=== PATIENT | male | born 1985 | race Caucasian/White ===

== ENCOUNTER 2020-03-29 07:12 | Outpatient (REF) | payer BC, SELFPAY ==
[2020-03-29 08:27] LABS: MANUAL DIFF FLAG NO
[2020-03-29 08:32] LABS: Basophils Percent Auto 0.6 % (0-2); Eosinophils Absolute Auto 0.1 X10*3/uL (0.0-0.4); Eosinophils Percent Auto 1.5 % (0-4); Hematocrit 42.2 % (42-52); Hemoglobin 13.8 g/dl (14.0-18.0); Lymphocytes Absolute Auto 1.4 X10*3/uL (1.2-4.9); Lymphocytes Percent Auto 29.7 % (20-40); Mean Corpuscular HGB Conc 32.7 g/dl (31.0-36.0); Mean Corpuscular Hemoglobin 29.1 pg (27.0-33.0); Mean Platelet Volume 10.1 fL (9.4-12.4); Monocytes Absolute Auto 0.3 X10*3/uL (0.1-1.2); Monocytes Percent Auto 5.8 % (2-11); Neutrophils Absolute Auto 2.9 X10*3/uL (2.0-8.3); Neutrophils Percent Auto 62.4 % (45-73); Platelet Count 209 X10*3/uL (160-400); Red Blood Count 4.74 X10*6/uL (4.60-5.80); Red Cell Distribution Width 12.6 % (11.0-16.0); White Blood Count 4.6 X10*3/uL (4.8-10.8)
[2020-03-29 09:01] LABS: Alanine Aminotransferase 13 U/L (0-40); Albumin Level 4.8 g/dL (3.5-5.0); Alkaline Phosphatase 39 U/L (39-117); Anion Gap 12 (12-20); Aspartate Amino Transferase 16 U/L (5-37); Bilirubin Total 0.5 mg/dL (0.0-1.0); Blood Urea Nitrogen 25 mg/dL (9-16); Calcium 9.4 mg/dL (8.4-10.2); Carbon Dioxide 30 mmol/L (22-29); Chloride 103 mmol/L (96-108); Cholesterol 167 mg/dL; Estimated Glomerular Filt Rate > 60; Glucose Random 96 mg/dL (60-115); HDL Cholesterol 49 mg/dL; LDL Cholesterol Calculated 105 mg/dl; Potassium 4.7 mmol/l (3.3-5.1); Sodium 140 mmol/L (135-145); Triglycerides 65 mg/dL
[2020-03-29 09:15] LABS: Free T4 (Free Thyroxine) 0.92 ng/dL (0.71-1.85); Thyroid Stimulating Hormone 0.87 uIU/mL (0.32-4.0)
[2020-03-31 05:14] LABS: Folate 8.7 ng/mL (> or = 4.0); Vitamin B12 397 pg/mL (200-900)
== END 2020-03-29 07:13 | disposition home or self-care (01) ==
LOC: HO.LAB 07:12
PROVIDERS: PCP Internal Medicine; Visit Provider Internal Medicine
DX: K21.9 Gastro-esophageal reflux disease without esophagitis (principal); E78.00 Pure hypercholesterolemia, unspecified
CPT/HCPCS: 36415; 80053; 80061; 82607; 82746; 84439; 84443; 85025

== ENCOUNTER 2020-05-27 10:11 | Outpatient (REF) | payer BC, SELFPAY ==
[2020-05-27 10:59] LABS: MANUAL DIFF FLAG NO
[2020-05-27 11:05] LABS: Basophils Percent Auto 0.5 % (0-2); Eosinophils Absolute Auto 0.1 X10*3/uL (0.0-0.4); Eosinophils Percent Auto 1.5 % (0-4); Hematocrit 41.5 % (42-52); Hemoglobin 13.5 g/dl (14.0-18.0); Imm Gran Abs Auto 0.01 X10*3/uL (0.00-0.03); Imm Gran Pct Auto 0.2 % (0.0-0.4); Lymphocytes Absolute Auto 1.3 X10*3/uL (1.2-4.9); Lymphocytes Percent Auto 24.1 % (20-40); Mean Corpuscular HGB Conc 32.5 g/dl (31.0-36.0); Mean Corpuscular Volume 89.1 fL (80-98); Monocytes Absolute Auto 0.4 X10*3/uL (0.1-1.2); Monocytes Percent Auto 6.9 % (2-11); Neutrophils Absolute Auto 3.7 X10*3/uL (2.0-8.3); Neutrophils Percent Auto 66.8 % (45-73); Platelet Count 193 X10*3/uL (160-400); Red Blood Count 4.66 X10*6/uL (4.60-5.80); Red Cell Distribution Width 13.2 % (11.0-16.0); Retic HGB Equivalent 34.4 pg (30.0-35.0); Reticulocyte Percent 0.6 % (0.5-1.8); Reticulocytes Absolute 0.027 X10*6/uL (0.026-0.095); White Blood Count 5.5 X10*3/uL (4.8-10.8)
[2020-05-27 12:07] LABS: Folate 9.2 ng/mL (> or = 4.0); Vitamin B12 393 pg/mL (200-900)
[2020-05-27 12:29] LABS: Iron 79 mcg/dL (45-160); Percent Iron Saturation 24 % (15-50); Total Iron Binding Capacity 323 mcg/dL (228-428); Unsaturated Iron Binding 244 ug/dL
[2020-05-27 12:54] LABS: Ferritin 58 ng/mL (20-250)
== END 2020-05-27 10:12 | disposition home or self-care (01) ==
LOC: HO.HMGCLDS 10:11
PROVIDERS: PCP Internal Medicine; Visit Provider Internal Medicine
DX: D64.9 Anemia, unspecified (principal)
CPT/HCPCS: 36415; 82607; 82728; 82746; 83540; 85025; 85045

== ENCOUNTER → 2023-11-10 14:06 | Outpatient (RCR) | payer BC, SELFPAY ==
--- NOTE | 2020-07-21 09:17 | PM.HEMONCCN ---
Subjective - Subjective Chief complaint: Low blood counts Patient: new to practice Consult date: 07/21/20 Requesting Physician: Dr. Lopes Primary Care Provider: Umari Lopes MD HPI - Consult Narrative Reason for consult: Normocytic anemia Narrative: Abundio Mitchell is a 35 year old male referred for evaluation of mild normocytic anemia. His hemoglobin was around 13 gram/dL on a couple of occasions in 2020. His white count was slightly low on 1 occasion. He has no history of fever, chills, night sweats or unexplained weight loss. He has past history of alcoholism but he has stopped drinking about 3 years ago. He has a history of chronic GERD but does not take any medications for it. He exercises, walks or runs 3 miles every day. He denies any shortness of breath or chest pain. No change in bowel habits. He smokes marijuana daily. His daughter who is 3 years old now was treated for acute myelogenous leukemia. She is in remission. Review of Systems - Constitutional Reports as per HPI, Denies fatigue, Denies fever(s), Denies malaise, Denies night sweats, Denies poor appetite - Cardiovascular Reports no additional cardiovascular complaints - Respiratory Reports no additional respiratory complaints - Gastrointestinal Reports no additional gastrointestinal complaints Oncology Screenings - ECOG Performance Status ECOG Performance Status: 0 PMFSH Medical History: Medical History (Last Updated 07/01/20 @ 15:53 by Umair Lopes MD) ADHD Anxiety and depression Carpal tunnel syndrome GERD (gastroesophageal reflux disease) Insomnia Stills heart murmur Vitamin D deficiency Family History: Family History (Last Updated 07/01/20 @ 15:55 by Umair Lopes MD) Maternal Grandfather Myocardial infarction Maternal Aunt Ovarian cancer Maternal Grandmother Breast cancer Paternal Grandfather Sarcoma Daughter Leukemia Surgical History: Surgical History (Last Updated 07/21/20 @ 09:23 by Sandra Melgoza) H/O vasectomy Hx of appendectomy Hx of carpal tunnel repair Social History: Social History (Last Updated 07/21/20 @ 09:23 by Sandra Melgoza) Alcohol History: Alcohol intake: former Alcohol History Details: Alcohol intake frequency: does not drink Tobacco History: Smoking Status: Never smoker Substance Use History: Use of substances other than those prescribed or required for medical reasons: No Substance Use Type: Marijuana Smoking status: Never smoker Home Medications and Allergies Allergies Allergy/AdvReac Type Severity Reaction Status Date / Time trazodone AdvReac Mild Sedating Verified 03/26/20 07:46 Physical Exam Vital signs: Vital Signs Temp Pulse Resp BP Pulse Ox 07/21/20 09:19 98.2 F 66 12 142/66 H 100 Intake and Output 07/20/20 07/21/20 07/21/20 22:59 06:59 14:59 Other: Weight 70.4 kg [place] Weight in Grams [id number] Patient Weight 07/22/20 06:59 Weight 70.4 kg - Constitutional Present: no acute distress, mild distress - Routine HEENT Exam Head: Present: normal inspection Eye: Present: EOMI, PERRL - Routine Neck Exam Present: supple. Absent: lymphadenopathy - Routine Respiratory Exam Present: CTAB - Routine Cardiovascular Exam Cardiovascular: Present: S1, S2 - Routine Abdominal Exam Present: soft. Absent: organomegaly - Routine Extremities Exam Absent: pedal edema - Routine Skin Exam Present: intact. Absent: erythema Hem/Onc Consult Result - Labs CBC & Chem 7: 07/21/20 09:56 Assessment and Plan (1) Anemia Status: Chronic Qualifiers: Anemia type: unspecified type Qualified Code(s): D64.9 - Anemia, unspecified This is a 35-year-old male in excellent health who was noted to have mild normocytic anemia on routine blood work. He is concerned about this because of his daughter having been treated for acute leukemia. He does not have any constitutional symptoms. Blood work shows no evidence of hemolysis, no kidney or liver problems. No hematinic deficiencies. The only other concern is that he thinks he is is exposed to certain toxic aerosols at work, he has inquired at his job and he was told that they are following standard guidelines. Blood work today shows borderline normocytic anemia. This has been stable since March. He has persistent lymphopenia although his total WBC count is normal. Further evaluation with a bone marrow aspiration/biopsy can be performed if no further cause can be ascertained. I thank you for this consultation.
[2020-07-21 09:19] VITALS: BP 142/66; PULSE 66; RESP 12; TEMP 36.8; O2SAT 100; BMI 19.3
[2020-07-21 10:14] LABS: MANUAL DIFF FLAG NO
[2020-07-21 10:18] LABS: Basophils Percent Auto 0.5 % (0-2); Eosinophils Percent Auto 0.5 % (0-4); Hematocrit 39.8 % (42-52); Hemoglobin 13.2 g/dl (14.0-18.0); Imm Gran Abs Auto 0.02 X10*3/uL (0.00-0.03); Imm Gran Pct Auto 0.3 % (0.0-0.4); Immature Retic Fraction 4.1 % (2.3-13.4); Lymphocytes Percent Auto 14.7 % (20-40); Mean Corpuscular HGB Conc 33.2 g/dl (31.0-36.0); Mean Corpuscular Hemoglobin 29.4 pg (27.0-33.0); Mean Corpuscular Volume 88.6 fL (80-98); Monocytes Absolute Auto 0.5 X10*3/uL (0.1-1.2); Monocytes Percent Auto 7.4 % (2-11); Neutrophils Absolute Auto 5.1 X10*3/uL (2.0-8.3); Neutrophils Percent Auto 76.6 % (45-73); Platelet Count 205 X10*3/uL (160-400); Red Blood Count 4.49 X10*6/uL (4.60-5.80); Red Cell Distribution Width 13.2 % (11.0-16.0); Retic HGB Equivalent 34.1 pg (30.0-35.0); Reticulocyte Percent 0.9 % (0.5-1.8); White Blood Count 6.6 X10*3/uL (4.8-10.8)
[2020-07-21 10:38] LABS: Lactate Dehydrogenase 188 U/L (118-273)
--- NOTE | 2020-07-21 11:46 | MHC.HEMONCMA ---
Patient came in for a consult for anemia and wbc counts today. States he is feeling well, but is worried about the bloodwork because his daughter had leukemia when she was 1. Patient states that his daughter is well now and is 3 years old. Clinical summary was reviewed and updated. Patient had labs and will have a telehealth in 3 weeks for a follow up
[2020-07-23 13:46] LABS: Anti Nuclear Antibody Screen NEGATIVE (NEGATIVE)
[2020-07-23 21:01] LABS: Haptoglobin 78 mg/dL (43-212)
--- NOTE | 2020-08-11 08:59 | HO.HEMONCTE1 ---
Hem/Onc Clinic Telehealth - Telehealth Location of Provider rendering services: Office Location of Patient: home Patient Identification confirmed using: Name, : Yes Telehealth Method: telephone Patient verbally consented to treatment: yes Patient verbally consented to billing insurance company: Yes Patient informed of any privacy concerns related to visit: Yes Medical Summary - Medical Summary Date of Service: 08/11/20 Chief complaint: follow-up Medical Summary: Diagnosis: Normocytic anemia, 2020 Hematological workup negative. Interval History Interval history: This is a scheduled tele visit for patient, mainly to discuss results of blood work. He has no new complaints today. He continues to exercise, run on a daily basis. No excessive fatigue, exertional chest pain or shortness of breath. No dizziness, loss of appetite or weight loss. Review of Systems - Constitutional Reports as per HPI, Reports no additional constitutional complaints Home Medications and Allergies Allergies Allergy/AdvReac Type Severity Reaction Status Date / Time trazodone AdvReac Mild Sedating Verified 03/26/20 07:46 Exam Vital signs: Vital Signs Temp 98.2 F 07/21/20 09:19 Pulse 66 07/21/20 09:19 Resp 12 07/21/20 09:19 BP 142/66 H 07/21/20 09:19 Pulse Ox 100 07/21/20 09:19 Weight 70.4 kg Body Mass Index 19.3 Narrative: Patient not examined today. - Constitutional Present: no acute distress, mild distress - Routine HEENT Exam Head: Present: normal inspection - Routine Respiratory Exam Present: CTAB - Routine Cardiovascular Exam Cardiovascular: Present: S1, S2 - Routine Abdominal Exam Present: soft. Absent: organomegaly - Routine Extremities Exam Absent: pedal edema - Routine Skin Exam Present: intact. Absent: erythema Data - Labs CBC & Chem 7: 07/21/20 09:56 Labs: 07/21/20 09:56 PRISCILLA Reflex Titer and Pattern Routine Complete Blood Count Auto Diff Routine Haptoglobin Routine Lactate Dehydrogenase Routine Reticulocyte Count Routine Laboratory Last Values WBC 6.6 X10*3/uL (4.8-10.8) 07/21/20 09:56 RBC 4.49 X10*6/uL (4.60-5.80) L 07/21/20 09:56 Hgb 13.2 g/dl (14.0-18.0) L 07/21/20 09:56 Hct 39.8 % (42-52) L 07/21/20 09:56 MCV 88.6 fL (80-98) 07/21/20 09:56 MCH 29.4 pg (27.0-33.0) 07/21/20 09:56 MCHC 33.2 g/dl (31.0-36.0) 07/21/20 09:56 RDW 13.2 % (11.0-16.0) 07/21/20 09:56 Plt Count 205 X10*3/uL (160-400) 07/21/20 09:56 MPV 10.0 fL (9.4-12.4) 07/21/20 09:56 Immature Gran % (Auto) 0.3 % (0.0-0.4) 07/21/20 09:56 Neut % (Auto) 76.6 % (45-73) H 07/21/20 09:56 Lymph % (Auto) 14.7 % (20-40) L 07/21/20 09:56 [place] % (Auto) 7.4 % (2-11) 07/21/20 09:56 Eos % (Auto) 0.5 % (0-4) 07/21/20 09:56 Baso % (Auto) 0.5 % (0-2) 07/21/20 09:56 Lymph # (Auto) 1.0 X10*3/uL (1.2-4.9) L 07/21/20 09:56 [place] # (Auto) 0.5 X10*3/uL (0.1-1.2) 07/21/20 09:56 Eos # (Auto) 0.0 X10*3/uL (0.0-0.4) 07/21/20 09:56 Baso # (Auto) 0.0 X10*3/uL (0.0-0.2) 07/21/20 09:56 Abs Immat Gran (auto) 0.02 X10*3/uL (0.00-0.03) 07/21/20 09:56 Absolute Neuts (auto) 5.1 X10*3/uL (2.0-8.3) 07/21/20 09:56 Absolute Nucleated RBC 0.000 X10*3/uL (0.0-0.012) 07/21/20 09:56 Nucleated RBC % (auto) 0.0 /100WBC (0.0-0.2) 07/21/20 09:56 Absolute Retic 0.040 X10*6/uL (0.026-0.095) 07/21/20 09:56 Percent Retic 0.9 % (0.5-1.8) 07/21/20 09:56 Immature Retic Fraction 4.1 % (2.3-13.4) 07/21/20 09:56 Retic Hgb Equivalent 34.1 pg (30.0-35.0) 07/21/20 09:56 Haptoglobin 78 mg/dL (43-212) 07/21/20 09:56 Lactate Dehydrogenase 188 U/L (118-273) 07/21/20 09:56 PRISCILLA Screen NEGATIVE (NEGATIVE) 07/21/20 09:56 PRISCILLA Titer TNP 07/21/20 09:56 PRISCILLA Titer 2 TNP 07/21/20 09:56 PRISCILLA Titer 3 TNP 07/21/20 09:56 PRISCILLA Pattern TNP 07/21/20 09:56 PRISCILLA Pattern 2 TNP 07/21/20 09:56 PRISCILLA Pattern 3 TNP 07/21/20 09:56 Progress Note: A/P (1) Anemia Status: Chronic Assessment and plan: This is a 35-year-old male in excellent health who was noted to have mild normocytic anemia on routine blood work. He is concerned about this because of his daughter having been treated for acute leukemia. He does not have any constitutional symptoms. Blood work shows no evidence of hemolysis, no kidney or liver problems. No hematinic deficiencies. I discuss results of blood work. No cause for anemia can be found. CBC will be repeated in 3 months. If declining further I discussed performing bone marrow aspiration /biopsy. He is agreeable with above plan. I spent 10 minutes with the patient on the phone. Follow-up in 2 months. - Time Spent With Patient Total time spent is greater than 50% in coordination of care (as documented) at patient's floor/unit and/or counseling patient: less than 15 minutes
--- NOTE | 2020-08-11 13:38 | MHC.HEMONCMA ---
Patient had a telehealth appt with Dr Henson today, he states that he is doing very well. Clinical summary was reviewed and updated. Patient did not have labs but will come in for a follow up in 2 months.
== END | disposition home or self-care (01) ==
LOC: HO.ONC 07-21 09:04
PROVIDERS: PCP Internal Medicine; Visit Provider Internal Medicine
DX: D64.9 Anemia, unspecified (principal)
CPT/HCPCS: 36415; 83010; 83615; 85025; 85045; 86038; 86039

== ENCOUNTER 2023-12-29 14:56 | Outpatient (AMB) | payer BC, SELFPAY ==
--- NOTE | 2023-12-29 14:57 | MHC.PC.OV ---
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: No Allergies No Known Allergies Allergy (Verified 12/29/23 14:58) Medication List - Last Reconciled 12/29/23 by Umair Lopes MD dextroamphetamine-amphetamine 10 mg 1 tab PO TID fexofenadine (Fe Allergy) 180 mg PO DAILY trazodone 50 mg PO BEDTIME PRN Tobacco use date assessed: 12/29/23 Dental Screening Dental Screen Date: 12/29/23 Did you have a dental visit in the last 12 months?: Yes Did you have a dental problem in the last 6 months where you did not have access to dental care?: No Was dental information given to patient?: Patient has dentist HPI PE HPI Details 38-year-old male(noted 16 lb weight loss.) With GERDAnd anemia coming in for physical exam last seen in 07/24/2022. PFSH Medical History ADHD Anxiety and depression Carpal tunnel syndrome GERD (gastroesophageal reflux disease) Insomnia Stills heart murmur Vitamin D deficiency Surgical History H/O vasectomy Hx of appendectomy Hx of carpal tunnel repair Family History (Updated 12/29/23 @ 15:29 by Umair Lopes MD) Maternal Grandfather Myocardial infarction Maternal Aunt Ovarian cancer Maternal Grandmother Breast cancer Paternal Grandfather Sarcoma Daughter Leukemia Maternal Uncle Testicular cancer Mother Skin cancer Social History (Updated 12/29/23 @ 15:30 by Umair Lopes MD) Housing: House Alcohol intake: former Comment: 1 year Patient Tobacco Use Status: Never used Tobacco e-Cigarette/Vaping Use: Never Used Substance Use Type: Marijuana Current occupational status: employed Cognitive needs: No Hearing needs: No Vision needs: No Questionnaire PHQ-9 Over the last 2 weeks, how often have you been bothered by any of the following problems? 1. Little interest or pleasure in doing things: not at all 2. Feeling down, depressed, or hopeless: not at all 3. Trouble falling or staying asleep, or sleeping too much: not at all 4. Feeling tired or having little energy: not at all 5. Poor appetite or overeating: not at all 6. Feeling bad about yourself - or that you are a failure or have let yourself or your family down: not at all 7. Trouble concentrating on things, such as reading the newspaper or watching television: not at all 8. Moving or speaking so slowly that other people could have noticed. Or the opposite - being so fidgety or restless that you have been moving around a lot more than usual: not at all 9. Thoughts that you would be better off or of hurting yourself in some way: not at all Total score: 0 Depression Screening Interpretation: Negative Depression Screening Done: Yes 85621 - PHQ-9 Billing: Yes Source: Developed by Drs. Fernando Mei, Kary Ochoa, Otoniel Coronado and colleagues, with an educational ceasar from [employer]. Thrive Questionnaire Date Thrive assessed: 12/29/23 I am a: Patient What is your living situation today?: I do not have a steady places to live I am temporarily staying with others Within the past 12 months, did the food you bought not last and you didn't have the money to get more?: Often true Within the past 12 months, did you worry whether your food would run out before you got money to buy more?: Often true Do you have trouble paying for medicines?: Yes Do you have trouble getting transportation to medical appointments?: Yes Do you have trouble paying your heating and electricity bill?: Yes Do you have trouble taking care of your child, family member or friend?: Yes Do you have trouble with day-to-day activities such as bathing, preparing meals, shopping, managing finances, etc.?: Yes Are you currently unemployed and looking for a job?: Yes Are you interested in more education?: Yes Please select the resources that you would like help with: Food and None Currently or been in a relationship where the following occur: No concerns reported THRIVE Score: 5 AUDIT C Alcohol Use Questionnaire (AUDIT-C) 1. How often do you have a drink containing alcohol?: Never 3. How often do you have six or more drinks on one occasion?: Never Total Score: 0 MONTRELL-7 AMB Questionnaire MONTRELL-7 Date MONTRELL - 7 assessed: 12/29/23 Feeling nervous, anxious, or on edge: 0 = Not at all Not being able to stop or control worryin = Several days Worrying too much about different things: 0 = Not at all Trouble relaxin = Several days Being so restless that it is hard to sit still: 0 = Not at all Becoming easily annoyed or irritable: 0 = Not at all Feeling afraid as if something awful might happen: 1 = Several days Total MONTRELL-7 score (0-4 normal; 5-9 mild; 10-14 moderate; 15-21 severe): 3 Source: Developed by Drs. Fernando Mei, Kary Ochoa, Otoniel Coronado and colleagues, with an educational ceasra from [employer]. MONTRELL-7 Assessment Billing MONTRELL-7 Assessment Tool: MONTRELL-7 Assessment 00852 Review of Systems Const Denies poor appetite and Denies weakness Eyes Denies no additional complaints ENT Reports Normal hearing present, Denies dizziness, Denies nasal congestion, Denies tinnitus and Denies sore throat Card Denies chest pain, Denies syncope, Denies rapid heart rate and Denies dyspnea Resp Denies cough and Denies dyspnea GI Denies change in stool character, Reports constipation, Denies diarrhea, Denies nausea and Denies vomiting Denies dysuria and Denies urinary frequency Neuro Reports Normal hearing present, Denies confusion, Denies dizziness, Denies syncope and Denies weakness Psych Denies confusion Physical exam (Primary Care) Vital Signs: Last Vital Signs Pulse 91 12/29/23 14:58 BP 110/80 12/29/23 14:58 Pulse Ox 98 12/29/23 14:58 Oxygen Delivery Method Room Air 12/29/23 14:58 BMI result Body Mass Index 18.0 Tobacco/Smoking Status: Tobacco use Status Tobacco use date assessed 12/29/23 12/29/23 14:59 Patient Tobacco Use Status Never used Tobacco 12/29/23 14:59 e-Cigarette/Vaping Use Never Used 12/29/23 14:59 PHQ-9: PHQ-9 Score PHQ-9: Total score 0 12/29/23 14:59 Depression Screening Interpretation: Negative Thrive Assessment: Date of Thrive Assessment Date Thrive assessed 12/29/23 12/29/23 14:59 Currently or been in a relationship where the following occur: No concerns reported Const General: No confusion Orientation/consciousness: No confusion HENMT Head: Yes normocephalic Ears: external ears normal and TM's normal bilaterally Face and sinus: Yes normal facial exam Mouth: moist mucous membranes Throat: Yes tonsils normal Eyes Conjunctivae: conjunctivae normal Pupils: Equal, round and reactive pupils present and Pupil accommodation reflex normal Direct Ophthalmoscopy: normal light reflex Neck Neck: No lymphadenopathy Thyroid: Thyroid normal Chest Chest palpation & inspection: normal inspection of the chest Resp Effort & Inspection: normal respiratory effort and no audible wheezes Auscultation: clear to auscultation bilaterally, no crackles, no wheezes and lung sounds not diminished Cardio Rate: regular rate Rhythm: regular rhythm Peripheral pulses: radial pulses present and dorsalis pedis present GI Palpation (GI): no masses Auscultation: normal bowel sounds and normoactive bowel sounds Rectal Exam - Male: Yes deferred Skin General skin exam: no rashes or lesions noted Rashes: no rashes Neuro General: No confusion Cranial nerves: Yes Equal, round and reactive pupils present and Yes Normal hearing present Cognition (Neuro): normal cognition Gait exam (Neuro): Normal gait present Motor exam (neuro): 5/5 motor strength present throughout Deep tendon reflexes (DTR's): Right brachioradialis reflex intensity grade: 2+, Left brachioradialis reflex intensity grade: 2+, Right patellar reflex intensity grade: 2+ and Left patellar reflex intensity grade: 2+ Extrem General: No edema Coding Level of Care Code Est Pt Prev Care 18-39y(41210) Diagnoses Annual physical exam Z00.00 Weight loss R63.4 Gastroesophageal reflux disease without esophagitis K21.9 Esophagitis presence: without esophagitis Anemia, unspecified type D64.9 Anemia type: unspecified type Generalized anxiety disorder F41.1 Chronic pain of left knee M25.562; G89.29 Chronicity: chronic Additional Codes MONTRELL-7 Assessment Billing - MONTRELL-7 Assessment Tool: MONTRELL-7 Assessment [id number] ([id number]) Assessment & Plan Assessment & Plan (1) Annual physical exam: Code(s): Z00.00 - Encounter for general adult medical examination without abnormal findings Category: Medical Plan: Patient is advised to eat healthy, keep well hydrated, keep active and have adequate sleep. (2) Weight loss: Code(s): R63.4 - Abnormal weight loss Category: Medical Plan: Patient is advised to get blood work done. (3) GERD (gastroesophageal reflux disease): Code(s): K21.9 - Gastro-esophageal reflux disease without esophagitis Category: Medical Qualifiers: Esophagitis presence: without esophagitis Qualified Code(s): K21.9 - Gastro-esophageal reflux disease without esophagitis Plan: Avoid the foods that causes that usually spicy foods, tomato products, juices, coffee, soda and foods that your sensitive to. After eating do not lie down, allow 3-4 hours before in lie down. And keep the head of bed above 30 degrees to avoid the acid from going up. (4) Anemia: Comment: Patient has seen hematology oncology 2020 and will continue follow-up Code(s): D64.9 - Anemia, unspecified Category: Medical Qualifiers: Anemia type: unspecified type Qualified Code(s): D64.9 - Anemia, unspecified Plan: Will have to request for new blood work (5) Generalized anxiety disorder: Code(s): F41.1 - Generalized anxiety disorder Category: Medical Plan: Continue with present medication (6) Knee pain, left: Code(s): M25.562 - Pain in left knee Category: Medical Qualifiers: Chronicity: chronic Qualified Code(s): M25.562 - Pain in left knee; G89.29 - Other chronic pain Plan: will do xray first Orders: Orders Complete Blood Count Auto Diff Today R63.4 - Abnormal weight loss Comprehensive Met. Panel Today R63.4 - Abnormal weight loss Free T4 (Free Thyroxine) Today R63.4 - Abnormal weight loss Thyroid Stimulating Hormone Today R63.4 - Abnormal weight loss Lipid Panel Today E78.00 - Pure hypercholesterolemia, unspecified, R63.4 - Abnormal weight loss IRON PROFILE Today R63.4 - Abnormal weight loss UA CC w/rflx Micro + Cult Today R30.0 - Dysuria, R63.4 - Abnormal weight loss XR knee LT 2V Today G89.29 - Other chronic pain, M25.562 - Pain in left knee Testosterone, Total Today K21.9 - Gastro-esophageal reflux disease without esophagitis Vitamin B12 and Folate Today R63.4 - Abnormal weight loss Ferritin Today R63.4 - Abnormal weight loss Reticulocyte Count Today R63.4 - Abnormal weight loss
[2023-12-29 14:58] VITALS: BP 110/80; PULSE 91; O2SAT 98; BMI 18.0
== END 2023-12-29 15:47 | disposition home or self-care (01) ==
PROVIDERS: PCP Internal Medicine; Visit Provider Internal Medicine
DX: Z00.00 Encounter for general adult medical examination without abnormal findings (principal); R63.4 Abnormal weight loss; K21.9 Gastro-esophageal reflux disease without esophagitis; D64.9 Anemia, unspecified; F41.1 Generalized anxiety disorder; M25.562 Pain in left knee; G89.29 Other chronic pain

== ENCOUNTER → 2023-12-29 14:56 | Outpatient (BNVA) | payer BC, SELFPAY | PROVIDERS: PCP Internal Medicine; Visit Provider Internal Medicine | DX: Z00.00 Encounter for general adult medical examination without abnormal findings (principal); R63.4 Abnormal weight loss; K21.9 Gastro-esophageal reflux disease without esophagitis; D64.9 Anemia, unspecified; F41.1 Generalized anxiety disorder; G89.29 Other chronic pain; M25.562 Pain in left knee | CPT/HCPCS: 96127 ==

== ENCOUNTER 2024-04-16 08:43 | Outpatient (REF) | payer BC, SELFPAY ==
[2024-04-16 08:58] LABS: MANUAL DIFF FLAG NO
--- OUTSIDE RECORDS SUMMARY | 2024-04-16 09:06 | XMS_ITS | Encounter Summary ---
Author Organization Formerly [facility] Address [address] [place] [address] Care Team Providers Care Mortuary Operations Manager Name Role Phone Pcp, No Primary Care Provider Unavailabl e Encounter Details Date Type Department Care Team (Late st Contact Info) Description 01/15/2018 11:41 AM EST Hospital Encounter Formerly named [facility] [facility] [place] [address] [place] [address] Manyn Ibarra PA [employer] [address] [place] [address] Social History Tobacco Use Types Packs/Day Years Used Date Smoking Tobacco: Never Smokeless Tobacco: Never Alcohol Use Standard Drinks/Week Comments Not Currently 0 (1 standard drink = 0.6 oz pur e alcohol) Sex and Gender Information Value Date Recorded Sex Assigned at Not on file Gender Identity Not on file Sexual Orientation [...] or dislocation. The soft tissues are unremarkable. ??Small benign bone island identified in the distal [...] fracture or dislocation of the right hand. [facility] ORDER[facility] documented in this encounter Visit Diagnoses Not on filedocumented in this encounter Care Teams Mortuary Operations Manager Relationship Specialty Start Date End Date Pcp, No PCP - General General Medicine 12/27/17 04/05/23 documented as of this encounter
--- OUTSIDE RECORDS SUMMARY | 2024-04-16 09:06 | XMS_ITS | Clinical Summary ---
Author Organization [facility] Address [address] [place] [address] Care Team Providers Care Radiology Technologist Name Role Phone Umair Lopes MD Primary Care Provider [phone] Allergies No known active allergies Medications Medication Sig Dispensed Refills Start Date End Date Status amphetamine-dextroa mphetamine (ADDERALL XR) 20 MG 24 hr capsule Take 20 mg by mouth every morning. Active amphetamine-dextroa mphetamine (ADDERALL) 10 MG tablet Take 10 mg by mouth continuous as needed. Active dexAMETHasone (DECADRON) 2 MG tabletIndications:A cute pain of right shoulder TAKE 1 TAB TWICE DAILY FOR 5 DAYS THEN 1 TAB DAILY FOR 5 DAYS 15 tablet 07/27/2023 Active Active Problems Problem Noted Date Diagnosed Date Disturbance of skin sensation 09/28/2012 Pain in soft tissues of limb 09/28/2012 Social History Tobacco Use Types Packs/Day Years Used Date Smoking Tobacco: Never Smokeless Tobacco: Never Alcohol Use Standard Drinks/Week Comments Not Currently 0 (1 standard drink = 0.6 oz pur e alcohol) Sex and Gender Information Value Date Recorded Sex Assigned at Not on file Gender Identity Not on file Sexual Orientation Not on file Last Filed Vital Signs Vital Sign Reading Time Taken Comments Blood Pressure 124/69 03/08/2023 9:46 AM EST Pulse 84 03/08/2023 9:46 AM EST Temperature 36.7 ??C (98 ??F) 03/08/2023 9:46 AM EST Respiratory Rate 16 12/21/2022 10:05 AM EDT Oxygen Saturation 98% 01/04/2023 9:21 AM EDT Inhaled Oxygen Concentration - - Weight 68 kg (150 lb) 03/08/2023 9:46 AM EST Height 190.5 cm (6' 3 ) 03/08/2023 9:46 AM EST Body Mass Index 18.75 03/08/2023 9:46 AM EST Plan of Treatment Health Maintenance Due Date Last Done Comments Hepatitis C Virus Screening 1986 HIV Screening 07/05/1999 DTaP/Tdap/Td Vaccines (1 - Tdap) 2005 Hepatitis B Vaccines (1 of 3 - 19+ 3-dose series) 2005 Influenza Vaccine 10/06/2023 COVID-19 Vaccine ( - 2023-2 5 season) 2023 HPV Vaccines Aged Out No longer eligi ble based on patient's age to complete this topic Pneumococcal Vaccine: Pediat codie (0-5 Years) and At-Risk Patients (6 to 49 Years) Aged Out No longer eligible b ased on patient's age to complete this topic Care Teams Radiology Technologist Relationship Specialty Start Date End Date Umair Lopes MD [address] [place] [address] [place], [place] [id number] PCP - General Internal Medicine 04/06/23
--- OUTSIDE RECORDS SUMMARY | 2024-04-16 09:06 | XMS_ITS ---
Author Name [facility] Organization Unknown History of Medication Use Medication Directions Dispensed Refills Start Date End Date Stat us dexAMETHasone (DECADRON) 2 MG tablet TAKE 1 TAB TWICE DAILY FOR 5 DAYS THEN 1 TAB DAILY FOR 5 DAYS 07/27/2023 07/27/2023 aborted dextroamphetamine-am phetamine ER 10 mg 24hr capsule,extend release TAKE 1 CAPSULE BY MOUTH EVERY DAY active dextroamphetamine-am phetamine ER 15 mg 24hr capsule,extend release TAKE 1 CAPSULE BY MOUTH EVERY DAY active Problems Problem Status Onset Date Problem Type Date of Resolution Source Pain in soft tissues of limb active 2012-09-28 ProblemAct [facility] Pain of left knee region active 2023-07-21 ProblemAct [facility] Disturbance of skin sensation active 2012-09-28 ProblemAct [facility] Acute pain of right shoulder active EncounterDiagnosisAct CC T
--- OUTSIDE RECORDS SUMMARY | 2024-04-16 09:06 | XMS_ITS | Encounter Summary ---
Author Organization [facility] Address [address] [place] [address] Phone Care Team Providers Care Senior Tax Manager Name Role Phone Denton Devine MD Primary Care Provider Unavailabl e Encounter Details Date Type Department Care Team (Late st Contact Info) Description 10/21/2016 Conversion Encounter [facility] - [address] [address] Social History Tobacco Use Types Packs/Day Years Used Date Smoking Tobacco: Never Assessed Sex and Gender Information Value Date Recorded Sex Assigned at Not on file Legal Sex Male 4:12 PM EDT Gender Identity Not on file Sexual Orientation Not on file documented as of this encounter Plan of Treatment Not on file documented as of this encounter Visit Diagnoses Not on filedocumented in this encounter Care Teams Senior Tax Manager Relationship Specialty Start Date End Date Denton Devine MD PCP - General 10/15/16 documented as of this encounter
--- OUTSIDE RECORDS SUMMARY | 2024-04-16 09:06 | XMS_ITS | Encounter Summary ---
Author Organization [facility] Address [address] [place] [address] Care Team Providers Care Manager Graphic Name Role Phone Pcp, No Primary Care Provider Unavailabl e Umair Lopes MD Primary Care Provider [phone] Encounter Details Date Type Department Care Team (Late st Contact Info) Description 03/23/2023 Scanned Document [facility] [address] [id number] Marcus Morrison MD [address] [place] [address] Social History Tobacco Use Types Packs/Day Years [...] on filedocumented in this encounter Care Teams Manager Graphic Relationship Specialty Start Date End Date Pcp, No PCP - General General Medicine 12/27/17 04/05/23 Umair Lopes MD [address] [place] [address] [place] [address] PCP - General Internal Medicine 04/06/23 documented as of this encounter
--- OUTSIDE RECORDS SUMMARY | 2024-04-16 09:06 | XMS_ITS | Clinical Summary ---
Author Organization [facility] Address [address] [place] [address] Phone Care Team Providers Care Children'S Author Name Role Phone Denton Devine MD Primary Care Provider Unavailabl e Immunizations Immunization Administration Dates Next Due DTP 01/04/1998, 7,12/04/1996,1996 Hep B, ped/adol 03/06/1997,09/03/1996,08/04/1996 Hib (PRP-T) 08/04/1989 IPV 01/04/1998, 7,12/04/1996,1996 MMR 09/16/1995,10/20/1987 Td (adult) (MBL), 2 Lf tetan us toxoid, PF, adsorbed 05/03/2001,09/05/1995 Family History Relation Name Status Comments Brother 1 Alive Brother: Alive and well, Alive and well Brother 2 Alive Brother: Alive and well, Alive and well Father Alive Father: Alive a nd well Maternal Grandfather Materna l grandfather: Elevated cholesterol Mother Alive Mother: Alive a nd well Sister Alive Sister: Strabis mus/amblyopia Social History Tobacco Use Types Packs/Day Years Used Date Smoking Tobacco: Never Assessed Sex and Gender Information Value Date Recorded Sex Assigned at Not on file Legal Sex Male 4:12 PM EDT Gender Identity Not on file Sexual Orientation Not on file Plan of Treatment Health Maintenance Due Date Last Done Comments Varicella Vaccines (1 of 2 - 13+ 2-dose series) 07/05/1999 DTaP,Tdap,and Td Vaccines (5 - Tdap) 05/03/2011 05/03/2001, 01/04/1998, 02/03/1997, Additional history exists Influenza Vaccines (#1) 2023 COVID-19 Vaccine (2023- season) 2023 HIB Vaccines Completed 08/04/1989 MMR Vaccines Completed 09/16/1995, 10/20/1987 Hepatitis B Vaccines Completed 03/06/1997, 09/03/1996, 08/04/1996 IPV Vaccines Completed 01/04/1998, 01/07, 12/04/1996, Additional history exists HPV Vaccines Aged Out No longer eligi ble based on patient's age to complete this topic Hepatitis A Vaccines Aged Out No long er eligible based on patient's age to complete this topic Men B Vaccine Aged Out No longer elig ible based on patient's age to complete this topic Meningococcal Vaccine Aged Out No georgie mathieu eligible based on patient's age to complete this topic Pneumococcal Vaccine Aged Out No long er eligible based on patient's age to complete this topic Care Teams Children'S Author Relationship Specialty Start Date End Date Denton Devine MD PCP - General 10/15/16
--- OUTSIDE RECORDS SUMMARY | 2024-04-16 09:06 | XMS_ITS | Data Portability ---
Author Organization [place] [facility] Address [address] [place] [address] Care Team Providers Care Ground Transportation Operator Name Role Phone KARAN YEUNG Referring Provider Assessment Encounter Date Assessment Date Assessment LastModified by Organization Details LastModified Time 07/14/2023 07/14/2023 38-year-old male with acute left knee pain following injury approximately 2 days ago. His exam is largely unremarkable today. There is no appreciable soft tissue swelling or effusion. He maintains good strength and mobility. Given the paucity of exam findings and acute nature of his injury, I suggested we see how his symptoms settle out over the next couple of days and I will see him back in 7 to 10 days for repeat evaluation. He will continue with icing and [id number]-[id number] medications as needed with appropriate dosing and GI precautions. Advise he avoid noxious activities. He was fit for a double hinged knee brace in the office today. Questions invited and answered. Patient verbalizes understanding and agreement with plan. Patient was seen and evaluated by Radha Ornelas PA-C in indirect conjunction with Documenting Provider: Mark Rucker MD He/She agrees with history, physical examination, tests/diagnostic imaging, and treatment plan. Patient was prescribed a hinged knee brace for above diagnosis. The patient is ambulatory but has weakness and/or instability of their Left knee which requires stabilization from this semi-rigid / rigid orthosis to improve their function. Not available 07/21/2023 07:52:59 07/21/2023 07/21/2023 Resolving acute left knee pain. He demonstrates good clinical and symptomatic improvement. His original mechanism is some of injury was fairly innocuous. He is mildly tender over his patella tendon today, perhaps an acute flareup of patellar tendinitis. At this point he is doing well and we will defer any formal physical therapy for now. He can continue gradual return to activities letting symptoms be his guide. Icing protocol reviewed. He will continue to monitor his symptoms and follow-up with us as needed. Questions invited and answered. Patient verbalizes understanding and agreement with plan. PRIOR at : 38-year-old male with acute left knee pain following injury approximately 2 days ago. His exam is largely unremarkable today. There is no appreciable soft tissue swelling or effusion. He maintains good strength and mobility. Given the paucity of exam findings and acute nature of his injury, I suggested we see how his symptoms settle out over the next couple of days and I will see him back in 7 to 10 days for repeat evaluation. He will continue with icing and uhor-yqi-xbxvhfw medications as needed with appropriate dosing and GI precautions. Advise he avoid noxious activities. He was fit for a double hinged knee brace in the office today. Questions invited and answered. Patient verbalizes understanding and agreement with plan. Patient was seen and evaluated by Radha Ornelas PA-C in indirect conjunction with Documenting Provider: Mark Rucker MD He/She agrees with history, physical examination, tests/diagnostic imaging, and treatment plan. Not available 07/21/2023 16:51:26 Plan of Treatment Reminders Order Date Submit Date Provider Last Modified By Organization Details Last Modified Time Details Appointments None record ed. Lab None record ed. Referral None record ed. Procedures None record ed. Surgeries None record ed. Imaging XR, knee, 3 view 024 07/14/19 24 [facility], [address], [place], [address], 4 16:51:43 Medication Orders None record ed. Patient TargetsNo targets recorded. Patient Instructions Encounter Date Encounter Id Patient Instructions Last Modified By Organization Details Last Modified Time 07/14/2023 [id number] views of the left knee were obtained 07/14/2023 in the [place] office. Well-maintained joint space. Normal bony alignment. No obvious soft tissue calcification. Patella tracks centrally. No acute fracture or dislocation appreciated. Findings: Well maintained joint space. Interpreted by: Radha Ornelas PA-C Not available 07/21/2023 07:51:11 Reason for Referral None Reported. Problems Name Problem SNOMED Code Status Onset Date Resolution Date Notes Provider Name and Address Organization Details Recorded Time Pain of left knee region 838157168304940 Active 2023 RADHA ORNELAS PA-C [address], [place], [address], [facility], P 16:47:53 Problem Notes None recorded. Procedures Surgical History Date Name Laterality Status Provider Name and Address Organization Details Recorded Time Carpal tunnel surgery completed [facility], 07/14/2023 15:51:35 Imaging Results None recorded. Procedure Notes None recorded. Medical Equipment None Reported. Allergies No known drug allergies Medications Name Sig Start Date Stop Date Status Note LastModified by Organization Details LastModified Time dextroamph etamine-am phetamine 10 mg tablet TAKE 1 TABLET BY MOUTH IN THE AFTERNOON active Not Available Not Available No t Available dextroamph etamine-am phetamine ER 10 mg 24hr capsule,ex tend release TAKE 1 CAPSULE BY MOUTH EVERY DAY active Not Available Not Available No t Available cefdinir 300 mg capsule TAKE 1 CAPSULE BY MOUTH TWICE A DAY FOR 10 DAYS active Not Available Not Available No t Available dextroamph etamine-am phetamine 5 mg tablet TAKE 1 TABLET BY MOUTH IN THE AFTERNOON active Not Available Not Available No t Available dextroamph etamine-am phetamine ER 15 mg 24hr capsule,ex tend release TAKE 1 CAPSULE BY MOUTH EVERY DAY active Not Available Not Available No t Available Vitals Date Recorded Body height Body mass index (BMI) Body weight Provider Name and Address Organization Details Last Updated DateTime 07/14/2023 190.5 cm 18.1 kg/m2 09621.89 g [facility], [facility] 07/14/2023 15:50:31 Social History Question Answer Notes LastModified by Organizat ion Details LastModified Time Tobacco Smoking Status Never Smoker [facility], [facility] 07/14/2023 15:50:41 What Is Your Level Of Alcohol Consumption? None ries5 Information not available 07/14/2023 Do You Use Any Illicit Or Recreational Drugs? No Information not available 07/14/2023 Do You Or Have You Ever Used Any Other Forms Of Tobacco Or Nicotine? No Information not available 07/14/2023 Sex: Unknown Functional Status None recorded. Mental Status None recorded. Family History Relationship Description Onset Age of this Age Resolved Age Notes LastModified by Organization Details LastModified Time Mother Arthritis Not available 07/14/2023 15:50:56 Mother Family history of malignant neoplasm Not available 2023 15:51:07 Mother Heart disease Not available 2023 15:51:17 Father Arthritis Not available 07/14/2023 15:50:56 Father Family history of malignant neoplasm Not available 2023 15:51:07 Father Heart disease Not available 2023 15:51:17 Brother Arthritis Not availabl e 07/14/2023 15:50:56 Medical History Condition Response Coronary Artery Disease N Gout N Hyperthyroidism N MRSA N Blood Transfusion N Emphysema N Hypothyroidism N COPD N Depression N Pacemaker N Vascular Disease N Gastrointestinal Disease N Anxiety Disorder N Autoimmune disease N Arthritis N Cancer N Stroke N High Cholesterol N Neurologic Disorder N Liver Disease N Organ Transplant N Arrhythmia N Rheumatoid Arthritis N Fibromyalgia N Kidney Disease N Allergies/Hayfever N Adverse Reaction to Anesthesia N Thyroid Problems N Anemia N Brain Injury N Heart Attack ([place]) N Osteopenia N Diabetes N Bleeding Disorder N Seizures/Epilepsy N AIDS/HIV N Congestive Heart Failure (CHF) N Asthma N Amputation N Reflux/GERD N Sleep Apnea N Hepatitis N Aneurysm N Heart Disease N Pulmonary Embolism N Hypertension N Osteoporosis N Past Encounters Encounter ID Performer Location Encounter Start Date Encounter Closed Date Diagnosis/Indication Diagnosis SNOMED-CT Code Diagnosis ICD10 Code Diagnosis Note [id number] MD ELIAN Segura [facility] [address] [place], [place] [phone] 07/14/2023 15:20:43 07/14/2023 16:27:35 Pain of left knee region 1190430510 52663 M25.562 Additional diagnosis detail: Left knee pain, unspecifie d chronicity [id number] Mark Rucker MD [address] [place] [phone] 07/21/2023 15:06:52 07/21/2023 15:21:16 Pain of left knee region [id number] 40763 M25.562 Additional diagnosis detail: Left knee pain, unspecifie d chronicity Health Concerns Section Related Observation LastModified by Organization Detai ls LastModified Time None Recorded Concern Status LastModified by Organization Details LastModified Time None Recorded Advance Directives Directive None Recorded Payers Encounter Date Sequence Insurance Name Policy Number Policy Baez Covered Member ID Baez Member ID Guarantor Name 07/14/2023 1 [place] [id number] 2 Abundio Mitchell [id number] Abundio Mitchell 07/21/2023 1 [place] [id number] Abundio Mitchell [id number] Abundio Mitchell Notes Date Note Type Note Provider Name and Address Organization Details Recorded Time 07/14/2023 text/html Pleasant 38-year-old male presents to the walk-in today for evaluation of acute left knee pain. He reports he went to kick a soccer ball while playing with his son on Tuesday in stumbled on the left leg and felt a pop, however he notes that prior to this he had been feeling some clicking and popping earlier in the month. He reports his knee swelled up following this but he has been resting, icing and elevating as much as possible. He feels poorly localized pain and states the knee is a bit unstable but definitely improved overall. He has been taking either Tylenol and ibuprofen as needed. Denies any previous injury to the knee. No past medical history reported. Denies EtOH tobacco or drug use. Never smoker. RADHA ORNELAS PA-C [address], [place], [address], [place] [facility] 07/21/2023 07:53:11 07/21/2023 text/html Returns to the office today for follow-up evaluation of his left knee now 1 week status post injury. He reports marked improvement in his symptoms. He states most of his pain has resolved that he has been weaning himself out of the hinged knee brace. Denies any clicking catching or andrea locking. Denies sensations of instability. PRIOR at :Pleasant 38-year-old male presents to the walk-in today for evaluation of acute left knee pain. He reports he went to kick a soccer ball while playing with his son on Tuesday in stumbled on the left leg and felt a pop, however he notes that prior to this he had been feeling some clicking and popping earlier in the month. He reports his knee swelled up following this but he has been resting, icing and elevating as much as possible. He feels poorly localized pain and states the knee is a bit unstable but definitely improved overall. He has been taking either Tylenol and ibuprofen as needed. Denies any previous injury to the knee. No past medical history reported. Denies EtOH tobacco or drug use. Never smoker. RADHA ORNELAS PA-C [address], [place], [address], [place] [facility] 07/21/2023 16:51:37
[2024-04-16 09:40] LABS: Basophils Percent Auto 0.6 % (0-2); Eosinophils Absolute Auto 0.1 X10*3/uL (0.0-0.4); Eosinophils Percent Auto 1.8 % (0-4); Hematocrit 41.3 % (42.0-52.0); Hemoglobin 13.7 g/dl (14.0-18.0); Imm Gran Abs Auto 0.01 X10*3/uL (0.00-0.03); Imm Gran Pct Auto 0.2 % (0.0-0.4); Immature Retic Fraction 5.7 % (2.3-13.4); Lymphocytes Absolute Auto 1.5 X10*3/uL (1.2-4.9); Lymphocytes Percent Auto 29.8 % (20-40); Mean Corpuscular HGB Conc 33.2 g/dl (31.0-36.0); Mean Corpuscular Hemoglobin 29.7 pg (27.0-33.0); Mean Corpuscular Volume 89.4 fL (80.0-98.0); Mean Platelet Volume 10.1 fL (9.4-12.4); Monocytes Absolute Auto 0.4 X10*3/uL (0.1-1.2); Monocytes Percent Auto 7.5 % (2-11); Neutrophils Percent Auto 60.1 % (45-73); Platelet Count 188 X10*3/uL (160-400); Red Blood Count 4.62 X10*6/uL (4.60-5.80); Red Cell Distribution Width 12.5 % (11.0-16.0); Reticulocyte Percent 0.8 % (0.5-1.8); Reticulocytes Absolute 0.035 X10*6/uL (0.026-0.095)
[2024-04-16 09:58] LABS: Appearance Urine Clear; Color Urine Yellow; Glucose Urine UA Negative (Negative); Leukocyte Esterase Urine Negative (Negative); Nitrite Urine Negative (Negative); PH 7.5 (5.0-9.0); Urine Blood Negative (Negative); Urine Ketones Negative (Negative); Urine Protein Negative (Neg-Trace)
[2024-04-16 10:21] LABS: Alanine Aminotransferase 26 U/L (0-40); Albumin Level 4.5 g/dL (3.5-5.0); Alkaline Phosphatase 38 U/L (39-117); Anion Gap 10 (12-20); Aspartate Amino Transferase 28 U/L (5-37); Bilirubin Total 0.4 mg/dL (0.0-1.0); Blood Urea Nitrogen 18 mg/dL (9-16); Calcium 9.3 mg/dL (8.4-10.2); Carbon Dioxide 28 mmol/L (22-29); Chloride 107 mmol/L (96-108); Cholesterol 136 mg/dL (<200); Estimated Glomerular Filt Rate > 60; Glucose Random 92 mg/dL (60-115); HDL Cholesterol 49 mg/dL (>40); Iron 66 mcg/dL (45-160); LDL Cholesterol Calculated 80 mg/dL (<100); Percent Iron Saturation 25 % (15-50); Potassium 4.1 mmol/L (3.3-5.1); Sodium 141 mmol/L (135-145); Total Iron Binding Capacity 264 mcg/dL (228-428); Triglycerides 36 mg/dL (<150); Unsaturated Iron Binding 198 ug/dL
[2024-04-16 10:39] LABS: Ferritin 102 ng/mL (20-250); Free T4 (Free Thyroxine) 0.98 ng/dL (0.71-1.85); Thyroid Stimulating Hormone 0.71 uIU/mL (0.32-4.0)
[2024-04-16 10:55] LABS: Folate 9.7 ng/mL (> or = 4.0); Vitamin B12 567 pg/mL (200-900)
[2024-04-20 13:37] LABS: Testosterone, Total 505 ng/dL (250-1100)
== END 2024-04-16 08:44 | disposition home or self-care (01) ==
LOC: HO.LAB 08:43
PROVIDERS: PCP Internal Medicine; Visit Provider Internal Medicine
DX: R63.4 Abnormal weight loss (principal); K21.9 Gastro-esophageal reflux disease without esophagitis; E78.00 Pure hypercholesterolemia, unspecified; R30.0 Dysuria
CPT/HCPCS: 36415; 80053; 80061; 81003; 82607; 82728; 82746; 83540; 84403; 84439; 84443; 85025; 85045

== ENCOUNTER 2024-04-18 08:43 | Outpatient (AMB) | payer BC, SELFPAY ==
--- NOTE | 2024-04-18 09:02 | A.OFFPC_ITS ---
Vital Signs 04/18/24 09:07 Height 6 ft 3 in Weight 150 lb BMI 18.7 BP 128/72 Blood Pressure Location Lt brachial Position Sitting Pulse 45 L Pulse Source Pulse Oximeter Pulse Oximetry (%) 98 Oxygen Delivery Method Room Air Intake Visit Reasons: Anemia, weight loss Allergies No Known Allergies Allergy (Verified 04/18/24 09:08) Tobacco use date assessed: 04/18/24 Dental Screening Dental Screen Date: 04/18/24 Did you have a dental visit in the last 12 months?: Yes Did you have a dental problem in the last 6 months where you did not have access to dental care?: No Was dental information given to patient?: Patient has dentist HPI Anemia, weight loss HPI Details The patient is a 38-year-old male presenting with a follow-up for Gastroesophageal Reflux Disease (GERD), generalized anxiety disorder, and left knee pain. He was last seen in December 2023, during which a physical examination revealed weight loss, prompting blood work and a left knee x-ray. The patient was found to be anemic; however, recent results indicate improvement with a hemoglobin level of 13.7 g/dL and a hematocrit of 41.3%. Iron studies showed adequate iron levels, and his vitamin B12 and folic acid levels are normal. Thyroid function tests are within normal limits, and a urine test was negative. He reports that his blood pressure is under control with current medications. The patient has a history of GERD but did not provide new information regarding symptoms during this visit. He experiences generalized anxiety disorder, contributing to stress due to life circumstances, such as difficulties at work and the absence of a romantic partner. The patient reports left knee pain but has decided against additional imaging at this time, noting a decrease in flare- ups. The patient began taking vitamins approximately three to four weeks ago, reporting increased energy levels since then. He adheres to a nighttime smoking habit, using cannabis before bed to aid sleep, though no evidence of cannabis use was detected in standard urine testing. The patient is aware of the potential risks of smoking on lung health, particularly related to surgery, heart attacks, and strokes. He declined the suggestion of muscle relaxants. Despite his health conditions, he has developed a consistent sleep routine, contributing to overall well-being. [facility] Medical History (Updated 04/18/24 @ 09:29 by Umair Lopes MD) Insomnia Carpal tunnel syndrome Stills heart murmur Anxiety and depression Vitamin D deficiency ADHD GERD (gastroesophageal reflux disease) Surgical History Hx of carpal tunnel repair Hx of appendectomy H/O vasectomy Family History (Updated 12/29/23 @ 15:29 by Umair Lopes MD) Maternal Grandfather Myocardial infarction Maternal Aunt Ovarian cancer Maternal Grandmother Breast cancer Paternal Grandfather Sarcoma Daughter Leukemia Maternal Uncle Testicular cancer Mother Skin cancer Social History (Updated 12/29/23 @ 15:30 by Umair Lopes MD) Housing: House Alcohol intake: former Comment: 1 year Patient Tobacco Use Status: Never used Tobacco Tobacco use type: Cigarette e-Cigarette/Vaping Use: Never Used Second Hand Smoke Exposure: No Substance Use Type: Marijuana Current occupational status: employed Cognitive needs: No Hearing needs: No Vision needs: No Questionnaire PHQ-9 Over the last 2 weeks, how often have you been bothered by any of the following problems? 1. Little interest or pleasure in doing things: not at all 2. Feeling down, depressed, or hopeless: not at all 3. Trouble falling or staying asleep, or sleeping too much: not at all 4. Feeling tired or having little energy: not at all 5. Poor appetite or overeating: not at all 6. Feeling bad about yourself - or that you are a failure or have let yourself or your family down: not at all 7. Trouble concentrating on things, such as reading the newspaper or watching television: not at all 8. Moving or speaking so slowly that other people could have noticed. Or the opposite - being so fidgety or restless that you have been moving around a lot more than usual: not at all 9. Thoughts that you would be better off or of hurting yourself in some way: not at all Total score: 0 Depression Screening Interpretation: Negative Depression Screening Done: Yes 12106 - PHQ-9 Billing: Yes Source: Developed by Drs. Fernando Mei, Kary Ochoa, Otoniel Coronado and colleagues, with an educational ceasar from [employer]. Thrive Questionnaire Date Thrive assessed: 04/18/24 I am a: Patient What is your living situation today?: I do not have a steady places to live I am temporarily staying with others Within the past 12 months, did the food you bought not last and you didn't have the money to get more?: Often true Within the past 12 months, did you worry whether your food would run out before you got money to buy more?: Often true Do you have trouble paying for medicines?: Yes Do you have trouble getting transportation to medical appointments?: Yes Do you have trouble paying your heating and electricity bill?: Yes Do you have trouble taking care of your child, family member or friend?: Yes Do you have trouble with day-to-day activities such as bathing, preparing meals, shopping, managing finances, etc.?: Yes Are you currently unemployed and looking for a job?: Yes Are you interested in more education?: Yes Please select the resources that you would like help with: Food and None Currently or been in a relationship where the following occur: No concerns reported THRIVE Score: 5 AUDIT C Alcohol Use Questionnaire (AUDIT-C) 1. How often do you have a drink containing alcohol?: Never 3. How often do you have six or more drinks on one occasion?: Never Total Score: 0 MONTRELL-7 AMB Questionnaire MONTRELL-7 Date MONTRELL - 7 assessed: 04/18/24 Feeling nervous, anxious, or on edge: 0 = Not at all Not being able to stop or control worryin = Several days Worrying too much about different things: 0 = Not at all Trouble relaxin = Several days Being so restless that it is hard to sit still: 0 = Not at all Becoming easily annoyed or irritable: 0 = Not at all Feeling afraid as if something awful might happen: 1 = Several days Total MONTRELL-7 score (0-4 normal; 5-9 mild; 10-14 moderate; 15-21 severe): 3 Source: Developed by Drs. Fernando Mei, Kary Ochoa, Otoniel cao nd colleagues, with an educational ceasar from [employer]. MONTRELL-7 Assessment Billing MONTRELL-7 Assessment Tool: MONTRELL-7 Assessment 67748 Physical exam (Primary Care) Vital Signs: Last Vital Signs Pulse 45 L 04/18/24 09:07 BP 128/72 04/18/24 09:07 Pulse Ox 98 04/18/24 09:07 Oxygen Delivery Method Room Air 04/18/24 09:07 BMI result Body Mass Index 18.7 Tobacco/Smoking Status: Tobacco use Status Tobacco use date assessed 04/18/24 04/18/24 09:08 Patient Tobacco Use Status Never used Tobacco 04/18/24 09:02 Tobacco use type Cigarette 04/18/24 09:08 e-Cigarette/Vaping Use Never Used 04/18/24 09:02 PHQ-9: PHQ-9 Score PHQ-9: Total score 0 04/18/24 09:22 Depression Screening Interpretation: Negative Thrive Assessment: Date of Thrive Assessment Date Thrive assessed 04/18/24 04/18/24 09:02 Currently or been in a relationship where the following occur: No concerns reported Const General: alert; No acute distress Eyes Conjunctivae: conjunctivae normal Resp Auscultation: clear to auscultation bilaterally Cardio Rate: regular rate Rhythm: regular rhythm GI Inspection: Yes normal to inspection Extrem General: Yes normal to inspection and No edema Coding Level of Care Code Est Pt Level 4 (67475) Diagnoses ADHD F90.9 Chronic pain of left knee M25.562; G89.29 Chronicity: chronic Weight loss R63.4 Generalized anxiety disorder F41.1 Anemia, unspecified type D64.9 Anemia type: unspecified type Gastroesophageal reflux disease without esophagitis K21.9 Esophagitis presence: without esophagitis Additional Codes MONTRELL-7 Assessment Billing - MONTRELL-7 Assessment Tool: MONTRELL-7 Assessment 95940 ([id number]) PHQ-9 - 83074 - PHQ-9 Billing: Yes ([id number]) Assessment & Plan Assessment & Plan (1) ADHD: Code(s): F90.9 - Attention-deficit hyperactivity disorder, unspecified type Category: Medical Plan: Blood pressure under control continue with present medication (2) Knee pain, left: Code(s): M25.562 - Pain in left knee Category: Medical Qualifiers: Chronicity: chronic Qualified Code(s): M25.562 - Pain in left knee; G89.29 - Other chronic pain Plan: Resolved (3) Weight loss: Code(s): R63.4 - Abnormal weight loss Category: Medical Plan: Resolved (4) Generalized anxiety disorder: Code(s): F41.1 - Generalized anxiety disorder Category: Medical Plan: Stable (5) Anemia: Comment: Patient has seen hematology oncology 2021 and will continue follow-up Code(s): D64.9 - Anemia, unspecified Category: Medical Qualifiers: Anemia type: unspecified type Qualified Code(s): D64.9 - Anemia, unspecified Plan: Stable (6) GERD (gastroesophageal reflux disease): Code(s): K21.9 - Gastro-esophageal reflux disease without esophagitis Category: Medical Qualifiers: Esophagitis presence: without esophagitis Qualified Code(s): K21.9 - Gastro-esophageal reflux disease without esophagitis Plan: Resolved Plan - Continue current medication regimen for GERD and maintain monitoring blood pressure. - No additional imaging required for left knee pain at this time, but observe for any worsening symptoms. - Recommend continued use of current vitamin supplements for anemia management and reassess as needed. - Encourage stress management strategies for generalized anxiety disorder, with lifestyle modifications as feasible. - Discuss risks associated with smoking and recommend alternatives, such as limiting exposure or considering edibles. - Reinforce precautions during flu season and maintain vigilance regarding COVID-19 and RSV, emphasizing infection control practices.
[2024-04-18 09:07] VITALS: BP 128/72; PULSE 45; O2SAT 98; BMI 18.7
--- OUTSIDE RECORDS SUMMARY | 2024-04-18 09:39 | XMS_ITS | Encounter Summary ---
Author Organization [facility] Address [address] [place] [address] Care Team Providers Care Seo Professional Name Role Phone Pcp, No Primary Care Provider Unavailabl e Encounter Details Date Type Department Care Team (Late st Contact Info) Description 01/15/2018 11:41 AM EST Hospital Encounter [facility] [facility] [place] [address] [place] [address] Manny Ibarra PA [facility] [address] [place] [address] Social History Tobacco Use Types Packs/Day Years [...] on filedocumented in this encounter Care Teams Seo Professional Relationship Specialty Start Date End Date Pcp, No PCP - General General Medicine 12/27/17 04/05/23 documented as of this encounter
--- OUTSIDE RECORDS SUMMARY | 2024-04-18 09:39 | XMS_ITS | Clinical Summary ---
Author Organization [facility] Address [address] [place] [address] Care Team Providers Care Lithograph Designer Name Role Phone Umair Lopes MD Primary Care Provider [phone] Allergies No known active allergies Medications Medication [...] age to complete this topic Care Teams Lithograph Designer Relationship Specialty Start Date End Date Umair Lopes MD [address] [place] [address] [place], [place] [id number] PCP - General Internal Medicine 04/06/23
--- OUTSIDE RECORDS SUMMARY | 2024-04-18 09:40 | XMS_ITS | Clinical Summary ---
Author Organization [facility] Address [address] [place] [address] Phone Care Team Providers Care Straight Pin Making Machine Operator Name Role Phone Denton Devine MD Primary [...] age to complete this topic Care Teams Straight Pin Making Machine Operator Relationship Specialty Start Date End Date Denton Devine MD PCP - General 10/15/16
--- OUTSIDE RECORDS SUMMARY | 2024-04-18 09:40 | XMS_ITS | Encounter Summary ---
Author Organization [facility] Address [address] [place] [address] Phone Care Team Providers Care Oral Hygienist Name Role Phone Denton Devine MD Primary Care Provider Unavailabl e Encounter Details Date Type Department Care Team (Late st Contact Info) Description 10/21/2016 Conversion Encounter [facility] - [address] [address] Social History Tobacco Use Types Packs/Day Years [...] on filedocumented in this encounter Care Teams Oral Hygienist Relationship Specialty Start Date End Date Denton Devine MD PCP - General 10/15/16 documented as of this encounter
--- OUTSIDE RECORDS SUMMARY | 2024-04-18 09:40 | XMS_ITS | Encounter Summary ---
Author Organization [facility] Address [address] [place] [address] Care Team Providers Care Draw End Hand Name Role Phone Pcp, No Primary Care Provider Unavailabl e Umair Lopes MD Primary Care Provider [phone] Encounter Details Date Type Department Care Team (Late st Contact Info) Description 03/23/2023 Scanned Document [facility] [address] [id number] Marcus Morrison MD [address] [place] [address] Social History Tobacco Use Types Packs/Day Years [...] on filedocumented in this encounter Care Teams Draw End Hand Relationship Specialty Start Date End Date Pcp, No PCP - General General Medicine 12/27/17 04/05/23 Umair Lopes MD [address] [place] [address] [place] [address] PCP - General Internal Medicine 04/06/23 documented as of this encounter
== END 2024-04-18 10:02 | disposition home or self-care (01) ==
PROVIDERS: PCP Internal Medicine; Visit Provider Internal Medicine
DX: F90.9 Attention-deficit hyperactivity disorder, unspecified type (principal); M25.562 Pain in left knee; G89.29 Other chronic pain; R63.4 Abnormal weight loss; F41.1 Generalized anxiety disorder; D64.9 Anemia, unspecified; K21.9 Gastro-esophageal reflux disease without esophagitis

== ENCOUNTER → 2024-04-18 08:43 | Outpatient (BNVA) | payer BC, SELFPAY | PROVIDERS: PCP Internal Medicine; Visit Provider Internal Medicine | DX: F90.9 Attention-deficit hyperactivity disorder, unspecified type (principal); G89.29 Other chronic pain; M25.562 Pain in left knee; R63.4 Abnormal weight loss; Z68.1 Body mass index [BMI] 19.9 or less, adult; F41.1 Generalized anxiety disorder; D64.9 Anemia, unspecified; K21.9 Gastro-esophageal reflux disease without esophagitis | CPT/HCPCS: 96127 ==

== ENCOUNTER 2025-01-28 16:59 | Outpatient (AMB) | payer BC, SELFPAY ==
--- OUTSIDE RECORDS SUMMARY | 2018-01-15 11:41 | XMS_ITS | Encounter Summary ---
Author Organization [facility] Address [address] [place] [address] Care Team Providers Care Cash Application Clerk Name Role Phone Pcp, No Primary Care Provider Unavailabl e Encounter Details Date Type Department Care Team (Late st Contact Info) Description 01/15/2018 11:41 AM EST Hospital Encounter [facility] [address] [place] [address] [place] [address] Manny Ibarra PA [employer] [address] [place] [address] Social History Tobacco Use Types Packs/Day Years Used Date Smoking Tobacco: Never Smokeless Tobacco: Never Alcohol Use Standard Drinks/Week Comments Not Currently 0 (1 standard drink = 0.6 oz pur e alcohol) Sex and Gender Information Value Date Recorded Sex Assigned at Not on file Legal Sex Male 4:59 PM EDT Gender Identity Not on file Sexual Orientation Not on file documented as of this encounter Plan of Treatment Not on file documented as of this encounter Procedures Procedure Name Priority Date/Time Associated Diagnosis Comments XR HAND 3+ VIEWS-RIGHT STAT 01/15/2018 11:48 AM EST Pain of right hand documented in this encounter Results * XR Hand 3+ views-Right (01/15/2018 11:48 AM EST) Anatomical Region Laterality Modality Hand Right Computed Radiogr aphy 01/15/2018 11:4 9 AM EST Impressions 01/15/2018 11:50 AM EST 1.No acute fracture or dislocation of the right hand. Narrative 01/15/2018 11:50 AM EST CLINICAL HISTORY: Pain of right hand COMPARISON(S): None. TECHNIQUE: AP, lateral, and oblique radiographs of the right hand were obtained. FINDINGS: Normal mineralization without an acute fracture or dislocation. The soft tissues are unremarkable. Small benign bone island identified in the distal radius. Procedure Note James Salgado MD - 01/15/2018 CLINICAL HISTORY: Pain of right hand COMPARISON(S): None. TECHNIQUE: AP, lateral, and oblique radiographs of the right hand wereobtained. FINDINGS: Normal mineralization without an acute fracture or dislocation. The softtissues are unremarkable. Small benign bone island identified in thedistal radius. IMPRESSION: 1.No acute fracture or dislocation of the right hand. us Manny ACOSTA IMG DIAGNOSTIC IMAGING ORDERABLE S Final Result documented in this encounter Visit Diagnoses Not on filedocumented in this encounter Care Teams Cash Application Clerk Relationship Specialty Start Date End Date Pcp, No PCP - General General Medicine 12/27/17 04/05/23 documented as of this encounter
--- NOTE | 2025-01-28 17:13 | MHC.PC.OV ---
Vital Signs 01/28/25 17:14 Height 6 ft 3 in Weight 156 lb BMI 19.5 BP 110/70 Blood Pressure Location Lt brachial Position Sitting Pulse 63 Pulse Source Pulse Oximeter Temp 97.3 F Temp Source Temporal Artery Scan Pulse Oximetry (%) 98 Oxygen Delivery Method Room Air Intake Visit Reasons: Body pain, headache Peeler Operator Required: No Aeronautical Engineering Technologist: Not Required per policy Accompanied by: Self / Same As Patient Allergies No Known Allergies Allergy (Verified 01/28/25 17:14) Tobacco use date assessed: 01/28/25 Dental Screening Dental Screen Date: 04/18/24 HPI HPI Comments History of Present Illness Details History of Present Illness The patient is a 39 year old individual presenting for a follow-up visit for management of chronic conditions and evaluation of new symptoms. The patient has a history of GERD, generalized anxiety disorder, insomnia, and ADHD, and was last seen in April 2024. The patient continues taking trazodone. The patient visited an urgent care center on January 10 for myalgia after a tick bite. Viral testing at the time was negative, and the myalgia was severe enough to cause immobility for four days. The patient reports the tick is still lodged in the skin. Previous blood work revealed mild anemia, while electrolytes, renal function, liver function, and cholesterol levels were normal. The patient reports experiencing significant burnout and psychosomatic symptoms, described as a cortisol samayoa and waves of depression despite having good coping mechanisms. This is attributed to an accumulation of stressors over the last five years, including building a house, working third shift, a daughter's cancer diagnosis, a divorce, and a major job transition. The patient also reported having night sweats the previous night but denies a fever. Regarding urinary symptoms, the patient notes a weaker stream but also a lower fluid intake. The patient denies dysuria or urine discoloration. Bowel movements are reported as fine, with no hematochezia. Health Maintenance The patient noted a long time has passed since the last tetanus shot. The patient was advised that a tetanus booster can be administered at the next physical exam scheduled in June. Social History - Employment: The patient's job is undergoing a major transition, which is contributing to stress. - Housing: The patient lived with parents for five years and moved into a new, self-built house three months ago. - Family Status: The patient is and has a daughter who had cancer, which are cited as major life stressors over the past 4-5 years. - Stress: Reports significant burnout due to an accumulation of life stressors over the past five years. - Nutrition: The patient reports the diet has been inconsistent (on the alvarado) and drinks two to three bottles of water a day, sometimes with hydration additives. Results - Labs (Previous): CBC showed mild anemia. - Electrolytes, renal function, liver function, and cholesterol were normal. - Other Diagnostics (Recent): Viral testing after a tick bite was negative. [facility] Medical History (Updated 04/18/24 @ 09:29 by Umair Lopes MD) Insomnia Carpal tunnel syndrome Stills heart murmur Anxiety and depression Vitamin D deficiency ADHD GERD (gastroesophageal reflux disease) Surgical History Hx of carpal tunnel repair Hx of appendectomy H/O vasectomy Family History Maternal Grandfather Myocardial infarction Maternal Aunt Ovarian cancer Maternal Grandmother Breast cancer Paternal Grandfather Sarcoma Daughter Leukemia Maternal Uncle Testicular cancer Mother Skin cancer Social History Housing: House Alcohol intake: former Comment: 1 year Patient Tobacco Use Status: Never used Tobacco Tobacco use type: Cigarette e-Cigarette/Vaping Use: Never Used Second Hand Smoke Exposure: No Substance Use Type: Marijuana service: No Current occupational status: employed Cognitive needs: No Hearing needs: No Vision needs: No Questionnaire PHQ-9 Over the last 2 weeks, how often have you been bothered by any of the following problems? 1. Little interest or pleasure in doing things: more than half the days 2. Feeling down, depressed, or hopeless: more than half the days 3. Trouble falling or staying asleep, or sleeping too much: more than half the days 4. Feeling tired or having little energy: more than half the days 5. Poor appetite or overeating: more than half the days 6. Feeling bad about yourself - or that you are a failure or have let yourself or your family down: several days 7. Trouble concentrating on things, such as reading the newspaper or watching television: more than half the days 8. Moving or speaking so slowly that other people could have noticed. Or the opposite - being so fidgety or restless that you have been moving around a lot more than usual: more than half the days 9. Thoughts that you would be better off or of hurting yourself in some way: not at all Total score: 15 Depression Screening Interpretation: Positive Depression Screening Done: Yes Source: Developed by Drs. Fernando Mei, Kary Ochoa, Otoniel Coronado and colleagues, with an educational ceasar from [employer]. Thrive Questionnaire Date Thrive assessed: 04/18/24 I am a: Patient What is your living situation today?: I have a steady place to live Within the past 12 months, did the food you bought not last and you didn't have the money to get more?: Never true Within the past 12 months, did you worry whether your food would run out before you got money to buy more?: Never true Do you have trouble paying for medicines?: No Do you have trouble getting transportation to medical appointments?: No Do you have trouble paying your heating and electricity bill?: No Do you have trouble taking care of your child, family member or friend?: No Do you have trouble with day-to-day activities such as bathing, preparing meals, shopping, managing finances, etc.?: No Are you currently unemployed and looking for a job?: No Are you interested in more education?: No Please select the resources that you would like help with: None Currently or been in a relationship where the following occur: No concerns reported THRIVE Score: 0 AUDIT C Alcohol Use Questionnaire (AUDIT-C) 1. How often do you have a drink containing alcohol?: Never 2. How many drinks containing alcohol do you have on a typical day when you are drinking?: 1 or 2 3. How often do you have six or more drinks on one occasion?: Never Total Score: 0 MONTRELL-7 AMB Questionnaire MONTRELL-7 Date MONTRELL - 7 assessed: 01/28/25 Feeling nervous, anxious, or on edge: 2 = More than half the days Not being able to stop or control worryin = More than half the days Worrying too much about different things: 2 = More than half the days Trouble relaxin = More than half the days Being so restless that it is hard to sit still: 2 = More than half the days Becoming easily annoyed or irritable: 2 = More than half the days Feeling afraid as if something awful might happen: 2 = More than half the days Total MONTRELL-7 score (0-4 normal; 5-9 mild; 10-14 moderate; 15-21 severe): 14 Source: Developed by Drs. Fernando Mei, Kary Ochoa, Otoniel Coronado and colleagues, with an educational ceasar from [employer]. Review of Systems Narrative Review of Systems - Constitutional: Reports fatigue, burnout, and had one episode of night sweats. - Respiratory: Denies coughing and shortness of breath. - Musculoskeletal: Reports myalgia severe enough to cause immobility for four days. - Gastrointestinal: Reports bowel movements are fine. - Denies blood in stool. - Genitourinary: Reports a weaker urinary stream. - Denies dysuria or discolored urine. - Integumentary: Reports a past tick bite, and the tick is still lodged. - Psychiatric: Reports feeling overwhelmed, experiencing cortisol rushes, and extreme bouts of depression-like feelings related to burnout. Physical exam (Primary Care) Vital Signs: Last Vital Signs Temp 97.3 F 01/28/25 17:14 Pulse 63 01/28/25 17:14 BP 110/70 01/28/25 17:14 Pulse Ox 98 01/28/25 17:14 Oxygen Delivery Method Room Air 01/28/25 17:14 BMI result Body Mass Index 19.5 Tobacco/Smoking Status: Tobacco use Status Tobacco use date assessed 01/28/25 01/28/25 17:18 Patient Tobacco Use Status Never used Tobacco 01/28/25 17:18 Tobacco use type Cigarette 01/28/25 17:18 e-Cigarette/Vaping Use Never Used 01/28/25 17:18 PHQ-9: PHQ-9 Score PHQ-9: Total score 15 01/28/25 17:29 Depression Screening Interpretation: Positive Thrive Assessment: Date of Thrive Assessment Date Thrive assessed 04/18/24 01/28/25 17:18 Currently or been in a relationship where the following occur: No concerns reported Narrative Physical Exam - Respiratory: Lungs are clear on auscultation. - Extremities: No lower extremity edema. Const General: alert; No acute distress Eyes Conjunctivae: conjunctivae normal Resp Auscultation: clear to auscultation bilaterally Cardio Rate: regular rate Rhythm: regular rhythm GI Inspection: Yes normal to inspection Extrem General: Yes normal to inspection and No edema Coding Level of Care Code Est Pt Level 4 (30827) Diagnoses ADHD F90.9 Generalized anxiety disorder F41.1 Gastroesophageal reflux disease without esophagitis K21.9 Esophagitis presence: without esophagitis Assessment & Plan Assessment & Plan (1) ADHD: Code(s): F90.9 - Attention-deficit hyperactivity disorder, unspecified type Category: Medical Plan: Continuing with present medication. (2) Generalized anxiety disorder: Code(s): F41.1 - Generalized anxiety disorder Category: Medical Plan: Continue with trazodone. (3) GERD (gastroesophageal reflux disease): Code(s): K21.9 - Gastro-esophageal reflux disease without esophagitis Category: Medical Qualifiers: Esophagitis presence: without esophagitis Qualified Code(s): K21.9 - Gastro-esophageal reflux disease without esophagitis Plan Plan Patient was informed and verbally consented to the use of an ambient scribe for clinic note documentation during this visit. 1. Mild Anemia The patient has a history of mild anemia on prior blood work. To investigate this further, a follow-up CBC, iron panel, reticulocyte count, ferritin, and B12 level will be ordered. 2. Burnout/Stress Reaction The patient reports significant burnout and psychosomatic symptoms, including cortisol rushes, stemming from multiple life stressors over the past five years. To evaluate for an underlying inflammatory or endocrine cause, a sedimentation rate (ESR) and a random cortisol level will be checked. 3. History Of Tick Bite And Myalgia The patient developed severe myalgia after a tick bite on January 10 and remains concerned about tick-borne illness, as the tick is reportedly still lodged. Although prior viral testing was negative, a Lyme disease test will be ordered for further reassurance. 4. General Health Screening The patient requested a comprehensive workup to rule out any underlying health issues contributing to current symptoms. A lab panel including thyroid function tests, cholesterol, a comprehensive metabolic panel (for kidney and liver function and glucose), and a urinalysis will be ordered. Discussion Notes I discussed the plan to investigate the patient's symptoms and health concerns with a comprehensive set of lab tests. We will follow up on the previously noted mild anemia with a new CBC and specific tests for iron, ferritin, and B12. To address concerns about burnout and inflammation, I am ordering an ESR and a random cortisol level. A Lyme disease test will be run to rule out this possibility given the history of a tick bite. The general workup will also include thyroid, cholesterol, kidney, and liver function tests, along with a urinalysis. I cautioned the patient about the potential for electrolyte solutions to cause elevated levels of magnesium, potassium, or calcium, noting the cardiac risks of high potassium. We also discussed that the patient's tetanus immunization is not up to date, and this can be addressed at the next physical. I instructed the patient to fast for eight hours before the blood draw and that we will discuss the results once they are available. Patient Instructions - Please go to the lab for blood work. - You will need to fast for 8 hours before the tests, meaning nothing to eat or drink except for water. - Multiple tests will be run to check your blood count, iron levels, B12, thyroid, cholesterol, kidney and liver function, inflammation markers, cortisol, and for Lyme disease. - Continue to eat a healthy diet and avoid fast foods. - Be careful with how many electrolyte supplement drinks or powders you use. - Try to stay physically active. - You can receive an updated tetanus shot at your next physical exam in June. - We will contact you to discuss your test results. Orders: Orders Comprehensive Met. Panel Today K21.9 - Gastro-esophageal reflux disease without esophagitis Cortisol Random Today K21.9 - Gastro-esophageal reflux disease without esophagitis UA CC w/rflx Micro + Cult Today K21.9 - Gastro-esophageal reflux disease without esophagitis, R30.0 - Dysuria Lipid Panel Today E78.00 - Pure hypercholesterolemia, unspecified, K21.9 - Gastro-esophageal reflux disease without esophagitis Free T4 (Free Thyroxine) Today K21.9 - Gastro-esophageal reflux disease without esophagitis Vitamin B12 and Folate Today K21.9 - Gastro-esophageal reflux disease without esophagitis Lyme IgG/IgM w/reflex to WB Today K21.9 - Gastro-esophageal reflux disease without esophagitis Tick-borne Disease Molecular Today K21.9 - Gastro-esophageal reflux disease without esophagitis Magnesium Today K21.9 - Gastro-esophageal reflux disease without esophagitis Complete Blood Count Auto Diff Today K21.9 - Gastro-esophageal reflux disease without esophagitis Thyroid Stimulating Hormone Today K21.9 - Gastro-esophageal reflux disease without esophagitis IRON PROFILE Today K21.9 - Gastro-esophageal reflux disease without esophagitis Ferritin Today K21.9 - Gastro-esophageal reflux disease without esophagitis Reticulocyte Count Today K21.9 - Gastro-esophageal reflux disease without esophagitis C Reactive Protein Today K21.9 - Gastro-esophageal reflux disease without esophagitis
[2025-01-28 17:14] VITALS: BP 110/70; PULSE 63; TEMP 36.3; O2SAT 98; BMI 19.5
--- OUTSIDE RECORDS SUMMARY | 2025-01-28 20:30 | XMS_ITS | Clinical Summary ---
Author Organization [facility]ly [facility] Address [address] [place] [address] Care Team Providers Care Fsr Name Role Phone Umair Lopes MD Primary Care Provider [phone] Allergies No known active allergies Medications amphetamine-dex troamphetamine (ADDERALL XR) 20 MG 24 hr capsule Take 20 mg by mouth every morning. Active amphetamine-dex troamphetamine (ADDERALL) 10 MG tablet Take 10 mg by mouth continuous as needed. Active dexAMETHasone (DECADRON) 2 MG tabletIndicatio ns:Acute pain of right shoulder TAKE 1 TAB TWICE DAILY FOR 5 DAYS THEN 1 TAB DAILY FOR 5 DAYS 15 tablet 4 Active Active Problems Problem Noted Date Diagnosed [...] 84 03/08/2023 9:46 AM EST Temperature 36.7 C (98 F) 03/08/2023 9:46 AM EST Respiratory Rate 16 [...] - 19+ 3-dose series) 2005 Influenza Vaccine 10/05/2024 COVID-19 Vaccine ( - 2023-2 5 season) 2024 HPV Vaccines (No Doses Required) Completed Pneumococcal Vaccine: Pediat codie (0-5 Years) and At-Risk Patients (6 to 49 Years) Aged Out No longer eligible b ased on patient's age to complete this topic Insurance [employer] [facility] PPO [employer] [facility] - PPO [employer]IG [employer] Care Teams Fsr Relationship Specialty Start Date End Date Umair Lopes MD [address] [place] [address] Dr B[facility] [address] PCP - General Internal Medicine 04/06/23
--- OUTSIDE RECORDS SUMMARY | 2025-01-28 20:30 | XMS_ITS | Encounter Summary ---
Author Organization [facility] Address [address] [place] [address] Care Team Providers Care Fur Cutter Name Role Phone Pcp, No Primary Care Provider Unavailabl e Umair Lopes MD Primary Care Provider [phone] Encounter Details Date Type Department Care Team (Late st Contact Info) Description 03/23/2023 Scanned Document [facility] [address] [id number] Marcus Morrison MD [address] [place] [address] Social History Tobacco Use Types Packs/Day Years [...] on filedocumented in this encounter Care Teams Fur Cutter Relationship Specialty Start Date End Date Pcp, No PCP - General General Medicine 12/27/17 04/05/23 Umair Lopes MD [address] [place] [address] [place] [address] PCP - General Internal Medicine 04/06/23 documented as of this encounter
--- OUTSIDE RECORDS SUMMARY | 2025-01-28 20:30 | XMS_ITS | Encounter Summary ---
Author Organization [facility] Address [address] [place] [address] Phone Care Team Providers Care Manager Of Loss Prevention Operations Name Role Phone Denton Devine MD Primary Care Provider Unavailabl e Encounter Details Date Type Department Care Team (Late st Contact Info) Description 10/21/2016 Conversion Encounter [facility] - [address] [address] Social History Tobacco Use Types Packs/Day Years [...] filedocumented in this encounter Care Teams Manager Of Loss Prevention Operations Relationship Specialty Start Date End Date Denton Devine MD PCP - General 10/15/16 documented as of this encounter
--- OUTSIDE RECORDS SUMMARY | 2025-01-28 20:30 | XMS_ITS | Clinical Summary ---
Author Organization [facility] Address [address] [place] [address] Phone Care Team Providers Care Drapery Hemmer Automatic Name Role Phone Denton Devine MD Primary [...] 05/03/2011 05/03/2001, 01/04/1998, 02/03/1997, Additional history exists HPV Vaccines (1 - 3-dose SCDM series) 2013 Influenza Vaccines (#1) 2024 COVID-19 Vaccine (2024- season) 2024 HIB Vaccines Completed 08/04/1989 MMR Vaccines Completed 09/16/1995, 10/20/1987 Hepatitis B Vaccines Completed 03/06/1997, 09/03/1996, 08/04/1996 IPV Vaccines Completed 01/04/1998, 01/07, 12/04/1996, Additional history exists Hepatitis A Vaccines Aged Out No long [...] age to complete this topic Care Teams Drapery Hemmer Automatic Relationship Specialty Start Date End Date Denton Devine MD PCP - General 10/15/16
--- OUTSIDE RECORDS SUMMARY | 2025-01-28 20:30 | XMS_ITS | Data Portability ---
Author Organization [place] [facility] Address [address] [place] [address] Care Team Providers Care Director Title Name Role Phone GAMAL AYAKADOMINIQUE Referring Provider Assessment Encounter Date Assessment Date [...] evaluation. He will continue with icing and [id number]-rgn-[id number] medications as needed with appropriate dosing and [...] evaluation. He will continue with icing and pjco-zyq-[id number] medications as needed with appropriate dosing and [...] 3 view 024 07/14/19 24 [facility], [address], [place], [address], 4 16:51:43 Medication Orders None record ed. Patient TargetsNo targets recorded. Patient Instructions Encounter Date Encounter Id Patient Instructions Last Modified By Organization Details Last Modified Time 07/14/2023 [id number] views of the left knee were obtained 07/14/2023 in the [place] office. Well-maintained joint space. Normal bony alignment. [...] Recorded Time Pain of left knee region [id number] Active 2023 RADHA ORNELAS PA-C [address], [facility], [address], [place] [facility], P 16:47:53 Problem Notes None recorded. Procedures Surgical History Date Name Laterality Status Provider Name and Address Organization Details Recorded Time Carpal tunnel surgery completed [facility] 07/14/2023 15:51:35 Imaging Results None recorded. Procedure [...] Updated DateTime 07/14/2023 190.5 cm 18.1 kg/m2 94229.89 g [facility] 07/14/2023 15:50:31 Social History None recorded. Functional Status Question Answer Note LastModified by Organizat ion Details LastModified Time Do you use any illicit or recreational drugs? No Information not available 07/14/2023 Do you or have you ever used any other forms of tobacco or nicotine? No Information not available 07/14/2023 What is your level of alcohol consumption? None Information not available 07/14/2023 Mental Status None recorded. Family History Relationship [...] Artery Disease N Gout N Hyperthyroidism N Blood Transfusion N MRSA N Emphysema N Hypothyroidism N Depression N COPD N Pacemaker N Vascular Disease N Gastrointestinal Disease N Anxiety Disorder N Autoimmune disease N Arthritis N Cancer N Stroke N High Cholesterol N Neurologic Disorder N Liver Disease N Organ Transplant N Rheumatoid Arthritis N Arrhythmia N Fibromyalgia N Kidney Disease N Allergies/Hayfever N Adverse Reaction to Anesthesia N Thyroid Problems N Anemia N Brain Injury N Heart Attack ([place]) N Osteopenia N Diabetes N Bleeding Disorder N Seizures/Epilepsy N AIDS/HIV N Congestive Heart Failure (CHF) N Asthma N Amputation N Reflux/GERD N Sleep Apnea N Hepatitis N Aneurysm N Heart Disease N Pulmonary Embolism N Hypertension N Osteoporosis N Past Encounters Encounter ID Performer Location Encounter Start Date Encounter Closed Date Diagnosis/Indication Diagnosis SNOMED-CT Code Diagnosis ICD10 Code Diagnosis IMO Codes Diagnosis Note [id number] ANA MELENDREZ [facility] [address] [place] [address],[address] [place] [address] 07/14/2023 15:20:43 07/14/2023 16:27:35 Pain of left knee region [id number] 15092 M25.562 Additional diagnosis detail: Left knee pain, unspecifie d chronicity [id number] [place] [id number] 07/21/2023 15:06:52 07/21/2023 15:21:16 Pain of left knee region [id number] 61477 M25.562 Additional diagnosis detail: Left knee pain, unspecifie d chronicity Health Concerns Section Related Observation LastModified by Organization Detai ls LastModified Time None Recorded Concern Status LastModified by Organization Details LastModified Time None Recorded Advance Directives Directive None Recorded Payers Insurance Date Sequence Insurance Name Policy Number Policy Baez Covered Member ID Baez Member ID Guarantor Name 07/20/2023 1 [place] ([place]) [id number] Abundio Mitchell [id number] Abundio Mitchell Notes Date Note Type Note Provider Name and Address Organization Details Recorded Time 07/14/2023 text/html ROS as noted in the HPI Pratima 38-year-old male presents to the walk-in today [...] RADHA ORNELAS PA-C [address], [place], [address], [place] [facility] 07/21/2023 07:53:11 07/21/2023 text/html ROS as noted in the HPI Returns to the office today for follow-up evaluation of his left knee now 1 week status post injury. He reports marked improvement in his symptoms. He states most of his pain has resolved that he has been weaning himself out of the hinged knee brace. Denies any clicking catching or andrea locking. Denies sensations of instability. PRIOR at :Pratima 38-year-old male presents to the walk-in today [...] RADHA ORNELAS PA-C [address], [place], [address], [place] [facility] 07/21/2023 16:51:37
--- OUTSIDE RECORDS SUMMARY | 2025-01-28 20:30 | XMS_ITS ---
Author Name [facility] Organization Unknown History of Medication Use Medication Directions Dispensed Refills Start Date End Date Stat dexAMETHasone (DECADRON) 2 MG tablet TAKE 1 TAB TWICE DAILY FOR 5 DAYS THEN 1 TAB DAILY FOR 5 DAYS 07/27/2023 07/27/2023 aborted cefdinir 300 mg capsule TAKE 1 CAPSULE BY MOUTH TWICE A DAY FOR 10 DAYS active dextroamphetamine-am phetamine 10 mg tablet TAKE 1 TABLET BY MOUTH IN THE AFTERNOON active dextroamphetamine-am phetamine 5 mg tablet TAKE 1 TABLET BY MOUTH IN THE AFTERNOON active dextroamphetamine-am phetamine ER 10 mg 24hr capsule,extend release TAKE 1 CAPSULE BY MOUTH EVERY DAY active dextroamphetamine-am phetamine ER 15 mg 24hr capsule,extend release TAKE 1 CAPSULE BY MOUTH EVERY DAY active amphetamine-dextroam phetamine (ADDERALL XR) 20 MG 24 hr capsule Take 20 mg by mouth every morning. active amphetamine-dextroam phetamine (ADDERALL) 10 MG tablet Take 10 mg by mouth continuous as needed. active Problems Problem Status Onset Date Problem Type Date of Resolution Source Disturbance of skin sensation active 2012-09-28 ProblemAct [facility] Pain in soft tissues of limb active 2012-09-28 ProblemAct [facility] Acute pain of right shoulder active EncounterDiagnosisAct [facility] Pain of left knee region active 2023-07-21 ProblemAct [facility] Encounters Encounter Type Encounter Reason Primary Diagnosis Location Date Ambulatory Work Related Injury Work Related Injury [facility] 07/27/2023 Ambulatory [facility] 07/22/2023 Ambulatory [facility] 07/19/2023 Ambulatory [facility] [place] 07/19/2023 Ambulatory [facility] [place] 07/14/2023 Ambulatory [facility] 07/14/2023 Ambulatory [facility] 07/14/2023 Ambulatory [facility] 07/14/2023 Ambulatory Radiculopathy, cervical region Radiculopathy, cervical region [facility] 06/29/2023 Ambulatory Follow-up Follow-up [facility] 06/29/2023 Ambulatory Pain in right shoulder Pain in right shoulder [facility] 04/06/2023 Ambulatory Pain in right shoulder Pain in right shoulder [facility] 04/06/2023 Ambulatory Strain of muscle, fascia and tendon of long head of biceps, right arm, subsequent encounter Strain of muscle, fascia and tendon of long head of biceps, right arm, subsequent encounter [facility] 03/08/2023 Ambulatory Strain of muscle, fascia and tendon of long head of biceps, right arm, subsequent encounter Strain of muscle, fascia and tendon of long head of biceps, right arm, subsequent encounter [facility] 01/04/2023 Ambulatory Strain of muscle, fascia and tendon of long head of biceps, right arm, initial encounter Strain of muscle, fascia and tendon of long head of biceps, right arm, initial encounter [facility] 12/21/2022 Care Team Organization Name Specialty Phone Email Start Date End Da te [facility] AKRAN YEUNG Primary Care 04/06/2023 [facility] 03/27/2023 [facility] PCP,No Primary Care 12/21/2022 05/23/2024 [facility] NO PCP Primary Care 01/15/2018 12/21/2022
== END 2025-01-28 18:12 | disposition home or self-care (01) ==
LOC: HO.HMCH 16:59
PROVIDERS: PCP Internal Medicine; Visit Provider Internal Medicine
DX: F90.9 Attention-deficit hyperactivity disorder, unspecified type (principal); F41.1 Generalized anxiety disorder; K21.9 Gastro-esophageal reflux disease without esophagitis